=== PATIENT | male | born 1965 | race Caucasian/White ===

== ENCOUNTER → 2017-01-22 | Outpatient (CLI) | payer BC | END | disposition home or self-care (01) | LOC: C.LAB1850 15:24 | PROVIDERS: ATTEND Urology | DX: R97.20 Elevated prostate specific antigen [PSA] (principal) ==

== ENCOUNTER → 2017-01-22 | Outpatient (CLI) | payer BC ==
--- NOTE | 2017-01-22 14:22 | DIAGNOSTIC IMAGING REPORT ---
RIGHT ANKLE AND FOREFOOT MRI HISTORY: RT ANKLE PAIN Right TECHNIQUE: Multiplanar multisequence MRI of the right ankle and forefoot was performed without the use of intravenous contrast. COMPARISON STUDY: None. FINDINGS: There is thinning and increased signal within the mid to distal peroneal brevis tendon consistent with a tendinopathy. The flexor, extensor, and Achilles tendon are normal in course, caliber, and signal intensity. The plantar fascia is intact. No fracture or dislocation within the ankle or foot. The medial and lateral stabilizing ligaments of the ankle are intact. Minimal subcutaneous edema at the plantar aspect of the heel adjacent to the plantar fascia. Cartilage spaces are maintained. IMPRESSION: 1. Mild tendinopathy of the mid to distal peroneal brevis tendon. 2. No fractures identified within the ankle or forefoot. 3. Minimal subcutaneous edema along the plantar aspect of the heel abutting the plantar fascia. However, the plantar fascia is normal in caliber and signal intensity. Electronically signed by: Damián Buckley M.D. 01/22/2017 2:20 PM Dictated Date/Time: 01/22/2017 1:57 PM
== END | disposition home or self-care (01) ==
LOC: C.MRIBC 12:53
PROVIDERS: ATTEND Physical Medicine & Rehabilitation
DX: M79.661 Pain in right lower leg (principal); M79.671 Pain in right foot; M65.271 Calcific tendinitis, right ankle and foot

== ENCOUNTER 2021-01-18 19:03 | Inpatient (IN) ==
[2021-01-18] MEDS ORDERED: CEFEPIME 2,000 MG/20 ML VIAL IV STA (20:44)
[2021-01-18] MEDS ORDERED: ACETAMINOPHEN 500 MG TAB PO STA (21:02)
[2021-01-18 21:34] LABS: Hematocrit (blood only) 43.6 % (42-52); Hemoglobin 15.2 g/dL (14.0-18.0); Immature Granulocytes # (auto) 0.01 K/uL (0.00-0.02); Immature Granulocytes % (auto) 0.1 %; Lymphocytes # (auto) 0.12 K/uL (1.2-3.4); Lymphocytes % (auto) 1.4 %; Mean Corpuscular Hemoglobin 28.8 pg (25-34); Mean Corpuscular Hgb Conc 34.9 g/dL (32-36); Mean Corpuscular Volume 82.6 fL (80-100); Mean Platelet Volume 9.4 fL (7.4-10.4); Monocytes # (auto) 0.34 K/uL (0.11-0.59); Neutrophils # (auto) 8.08 K/uL (1.4-6.5); Neutrophils % (auto) 94.5 %; Platelet Count 123 K/uL (130-400); RDW Coefficient of Variation 13.5 % (11.5-14.5); RDW Standard Deviation 40.7 fL (36.4-46.3); Red Blood Count 5.28 M/uL (4.7-6.1); White Blood Count 8.55 K/uL (4.8-10.8)
--- NOTE | 2021-01-18 21:35 | Emergency Department Note ---
Impression & Plan Bacteremia due to Gram-negative bacteria, Fever, Hx of prostate biopsy ED Provider Note Provider: Minesh Santos MD DATE OF SERVICE: 01/18/2021 CHIEF COMPLAINT: Positive blood cultures HISTORY OF PRESENT ILLNESS: Patient is a 55-year-old gentleman history of enlarged prostate presenting after being called back due to positive blood cultures. Patient on Thursday 2 days ago had a prostate biopsy at the [facility]. States he is significantly large prostate. Noted yesterday some malaise as well as low-grade fevers and took a Cipro at home. Came in yesterday evening and seen very early last morning. Had blood cultures obtained which returned positive in 3/4 bottles for gram-negative bacilli this afternoon he was called back to return. Patient returns and states has had some low-grade intermittent fevers today particularly when the Cipro he is taking is wearing off at the end of the 12 hours. States he has been eating and drinking okay and denies significant urinary pain or hematuria. States chronic urinary frequency related to his enlarged prostate. States he was called by his urology group and told his prostate biopsies were negative for cancer. Patient states while he wants to feel better he was planning on going vacation but given his positive blood cultures he is agreeable to come here for evaluation and possible admission. REVIEW OF SYSTEMS: A total of 10 review of systems was obtained and negative except as stated above in the HPI. PAST MEDICAL HISTORY: As noted above MEDICATIONS: Reviewed home medication list FMH: No significant family history of prostate issues he reports. 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 NECK: Trachea midline. Supple. LUNGS: Airway patent. No retractions. Breath sounds clear anteriorly HEART: Regular rate and rhythm. No chest wall tenderness ABDOMEN: Soft and non-tender, without guarding or rebound. SKIN: Acyanotic, warm, dry, without rashes EXTREMITIES: Without swelling, tenderness or deformity NEUROLOGICAL: No focal deficits. No aphasia. No facial droop or slurred speech. Patient's laboratory studies and imaging reviewed. Differential includes Viral syndrome, otitis, pharyngitis, pneumonia, influenza, meningitis, urinary tract infection, sepsis, bacteremia, as well as other pathologies. IMPRESSION/MEDICAL DECISION MAKING: Patient presents called back after positive blood cultures from yesterday. Medical record reviewed. Prostate biopsy several days ago likely the inciting event. Likely bacteremia from this given the transrectal prostate biopsy on Thursday. Started taking Cipro yesterday several hours before the cultures were drawn as well as throughout the day today. Still having low-grade temperatures per his report and upon my evaluation the room he has an oral temperature of 100.7 Fahrenheit. Given some Tylenol here. Patient does not appear septic or hypotensive. Patient appears well perfused and denies significant discomfort at this point but endorses some intermittent malaise and fatigue. Discussed with him at length recommendations for IV antibiotics and repeat cultures. Discussed resistance patterns with ciprofloxacin. Discussed with him monitoring for clearance of cultures and improvement of symptoms. He was in agreement at this time for further care here at the hospital. Given empiric dose of cefepime for broad coverage given his recent procedure including gram-negative coverage. Hospitalist was contacted for further care DIAGNOSIS: Gram-negative bacteremia, history of prostate biopsy, fever DISPOSITION: Hospitalist will evaluate Patient was agreeable with this plan. Past Med/Surg History Social History Smoking Status: Never smoker Preferred Language: Portuguese Feels Safe at Home: Yes Allergies Allergies Allergy/AdvReac Type Severity Reaction Status Date / Time Penicillins Allergy Mild Rash Verified 01/18/21 20:51 Home Meds Home Medications Medication Instructions Recorded Confirmed simvastatin 20 mg tablet 20 mg PO HS 06/01/19 01/18/21 zolpidem 10 mg tablet 10 mg PO HS tab 06/01/19 01/18/21 alfuzosin [Uroxatral] 10 mg PO QAM 01/17/21 01/18/21 Results & Data (ED) Vital Signs Vital Signs - 24 hr 01/18/21 19:03 01/18/21 21:28 01/18/21 22:27 Temperature 37.4 C Temperature Source Temporal Artery Scan Pulse Rate 106 H Pulse Rate [Finger] 102 H 95 H Pulse Rhythm [Finger] Regular Regular Respiratory Rate 16 18 18 Respiratory Effort / Characteristics Non-Labored Spontaneous Non-Labored Spontaneous Respiratory Depth Normal Normal Respiratory Pattern Regular Regular Blood Pressure 125/76 Blood Pressure [Right Arm] 147/82 H 136/79 Blood Pressure Mean 92 Blood Pressure Mean [Right Arm] 103 98 Blood Pressure Position Sitting Blood Pressure Position [Right Arm] Sitting Sitting Pulse Oximetry 95 96 98 Oxygen Delivery Method Room Air Room Air Room Air Sepsis Recent Fever Within 48 Hours No Sepsis New/Unexplained Change in Mental Status No Sepsis Action Taken by Nursing No Action Required Laboratory Data Result diagrams: 01/18/21 20:21 01/18/21 20:21 Lab Results 01/18/21 01/18/21 01/18/21 Range/Units 20: 20: 20: WBC 8.55 (4.8-10.8) K/uL RBC 5.28 (4.7-6.1) M/uL Hgb 15.2 (14.0-18.0) g/dL Hct 43.6 (42-52) % MCV 82.6 (80-100) fL MCH 28.8 (25-34) pg MCHC 34.9 (32-36) g/dL RDW Std Deviation 40.7 (36.4-46.3) fL RDW Coeff of Satya 13.5 (11.5-14.5) % Plt Count 123 L (130-400) K/uL MPV 9.4 (7.4-10.4) fL Immature Gran % (Auto) 0.1 % Neut % (Auto) 94.5 % Lymph % (Auto) 1.4 % Rogers % (Auto) 4.0 % Eos % (Auto) 0.0 % Baso % (Auto) 0.0 % Neut # (Auto) 8.08 H (1.4-6.5) K/uL Lymph # (Auto) 0.12 L (1.2-3.4) K/uL Rogers # (Auto) 0.34 (0.11-0.59) K/uL Eos # (Auto) 0.00 (0-0.5) K/uL Baso # (Auto) 0.00 (0-0.2) K/uL Immature Gran # (Auto) 0.01 (0.00-0.02) K/uL Sodium 138 (136-145) mmol/L Potassium 3.4 L D (3.5-5.1) mmol/L Chloride 108 H (98-107) mmol/L Carbon Dioxide 23 (21-32) mmol/L Anion Gap 7.0 (3-11) BUN 14 (7-18) mg/dl Creatinine 1.02 (0.6-1.4) mg/dl Est Cr Clr Drug Dosing 90.9 ml/min Est GFR ( Amer) 96.1 ml/min Est GFR (Non-Af Amer) 82.9 ml/min BUN/Creatinine Ratio 13.9 (10-20) Glucose 127 H (70-99) mg/dl Lactate 1.1 (0.4-2.0) mmol/L Calcium 9.1 (8.5-10.1) mg/dl Magnesium 1.9 (1.8-2.4) mg/dl Total Bilirubin 3.8 H (0.2-1) mg/dl AST 35 (15-37) U/L ALT 33 (12-78) U/L Alkaline Phosphatase 63 (45-117) U/L Total Protein 6.6 (6.4-8.2) gm/dl Albumin 3.6 (3.4-5.0) gm/dl Globulin 3.0 (2.5-4.0) gm/dl Albumin/Globulin Ratio 1.2 (0.9-2) COVID-19 Eval Order SARS-CoV-2 (PCR) (Negative) 01/18/21 01/18/21 Range/Units 21:20 21:20 WBC (4.8-10.8) K/uL RBC (4.7-6.1) M/uL Hgb (14.0-18.0) g/dL Hct (42-52) % MCV (80-100) fL MCH (25-34) pg MCHC (32-36) g/dL RDW Std Deviation (36.4-46.3) fL RDW Coeff of Satya (11.5-14.5) % Plt Count (130-400) K/uL MPV (7.4-10.4) fL Immature Gran % (Auto) % Neut % (Auto) % Lymph % (Auto) % Rogers % (Auto) % Eos % (Auto) % Baso % (Auto) % Neut # (Auto) (1.4-6.5) K/uL Lymph # (Auto) (1.2-3.4) K/uL Rogers # (Auto) (0.11-0.59) K/uL Eos # (Auto) (0-0.5) K/uL Baso # (Auto) (0-0.2) K/uL Immature Gran # (Auto) (0.00-0.02) K/uL Sodium (136-145) mmol/L Potassium (3.5-5.1) mmol/L Chloride (98-107) mmol/L Carbon Dioxide (21-32) mmol/L Anion Gap (3-11) BUN (7-18) mg/dl Creatinine (0.6-1.4) mg/dl Est Cr Clr Drug Dosing ml/min Est GFR ( Amer) ml/min Est GFR (Non-Af Amer) ml/min BUN/Creatinine Ratio (10-20) Glucose (70-99) mg/dl Lactate (0.4-2.0) mmol/L Calcium (8.5-10.1) mg/dl Magnesium (1.8-2.4) mg/dl Total Bilirubin (0.2-1) mg/dl AST (15-37) U/L ALT (12-78) U/L Alkaline Phosphatase (45-117) U/L Total Protein (6.4-8.2) gm/dl Albumin (3.4-5.0) gm/dl Globulin (2.5-4.0) gm/dl Albumin/Globulin Ratio (0.9-2) COVID-19 Eval Order Covid19 at [facility] SARS-CoV-2 (PCR) NEGATIVE (Negative) Administered Medications Discontinued Medications Acetaminophen (Acetaminophen 500 Mg Tab) 1,000 mg PO NOW STA Stop: 01/18/21 21:03 Last Admin: 01/18/21 21:23 Dose: 1,000 mg Documented by: [id number] Cefepime HCl (Maxipime) 2,000 mg in 20 mls @ 5 mls/min IV NOW STA; Protocol Stop: 01/18/21 20:47 Last Admin: 01/18/21 21:22 Dose: 5 mls/min Documented by: [id number] Discharge Plan Visit Data Chief Complaint: Infection Stated Complaint: BLOOD INFECTION ED Provider: Minesh Santos Discharge Problem: Bacteremia due to Gram-negative bacteria, Fever, Hx of prostate biopsy Patient Disposition: Being Evaluated by Hospitalist Condition: Good Forms Stand Alone Forms: Stick and Play Prescriptions Prescriptions: No Action zolpidem [Ambien] 10 mg tablet 10 mg PO HS RF: 0 simvastatin 20 mg tablet 20 mg PO HS RF: 0 alfuzosin [Uroxatral] 10 mg tablet extended release 24 hr 10 mg PO QAM RF: 0 Referrals Referrals: PCP,NO [Primary Care Provider] - Discharge Problem: Fever Qualifiers: Fever type: due to other condition Qualified Code(s): R50.81 - Fever presenting with conditions classified elsewhere
[2021-01-18 21:55] LABS: Albumin Level 3.6 gm/dl (3.4-5.0); BUN Creatinine Ratio 13.9 (10-20); Calcium 9.1 mg/dl (8.5-10.1); Creatinine Clr Calc Pharmacy 90.9 ml/min; Est GFR (African American) 96.1 ml/min; Est GFR (Non-African American) 82.9 ml/min; Magnesium 1.9 mg/dl (1.8-2.4)
[2021-01-18 22:16] LABS: Albumin Globulin Ratio 1.2 (0.9-2); Bilirubin,Total 3.8 mg/dl (0.2-1); Total Protein 6.6 gm/dl (6.4-8.2)
[2021-01-18 22:27] LABS: Potassium 3.4 mmol/L (3.5-5.1)
--- NOTE | 2021-01-18 22:29 | History & Physical Report ---
Date of Service January 18, 2021 Assessment & Plan (1) Bacteremia due to Gram-negative bacteria: Patient is a 55 year old male with PMHx BPH, HLD, Sleep Disturbance, presenting with chief complaint of positive blood cultures growing gram negative bacilli. Bacteremia secondary to Gram Negative Bacilli -Suspect seeding secondary to recent prostate biopsy at [facility] on 01/16/21 -Blood cultures drawn on 01/17/21 growing 3/4 bottles with Gram Negative bacilli, though patient had been taking ciprofloxacin prior to cultures being drawn -Given a dose of Cefepime in the ED -Will start patient on Zosyn for coverage of anaerobes and hospital acquired in addition to gram negatives until cultures result and sensitivities shown -Suspect that these will result early tomorrow and patient can be transitioned to oral antibiotics Hyperbilirubinemia -Bilirubin total at 3.8 on admission -Liver enzymes within normal levels, no obvious signs of wilsons or hemolytic anemia -Suspect secondary to Gilbert Syndrome -CBC in AM, repeat bilirubin with direct BPH -Continue Alfuzosin HLD -Continue Simvastatin Sleep Disturbance -Hold ambient while inpatient -Will add melatonin PRN qhs Dispo: Med/Surg for IV antibiotics FEN: HH diet DVT: SCDs Code: Full History of Present Illness Chief Complaint: Bacteremia Primary Care Provider: NO PCP Patient is a 55 year old male with PMHx BPH, HLD, Sleep Disturbance, presenting with chief complaint of positive blood cultures growing gram negative bacilli. Patient notes that he underwent a prostate biopsy on 01/16/21 at [facility]. He notes that his biopsies were negative for cancer. He notes that he has had 1 day of ongoing fever and malaise for which he was taking leftover ciprofloxacin from a cystoscopy he had 1 month prior. He was seen at [facility] ED on 01/17/21 at which time blood cultures were drawn. Patient was discharged then per request as he was feeling better. This afternoon patient was called to return for evaluation as 3/4 of the bottles were growing gram negative bacilli. He notes that he currently feels well and has not had any further feelings of fever, malaise. Denies NVD, SOB, chest pain, abdominal pain, dysuria, hematuria. MED Hx: BPH, HLD, Sleep disturbance Surg Hx: L shoulder pin Soc Hx: No tobacco or illicit drug use. Alcoholic beverage 1x/month Allergies Allergy/AdvReac Type Severity Reaction Status Date / Time Penicillins Allergy Mild Rash Verified 01/18/21 20:51 Home Medications Medication Instructions Recorded Confirmed Type simvastatin 20 mg tablet 20 mg PO HS 06/01/19 01/18/21 History zolpidem 10 mg tablet 10 mg PO HS tab 06/01/19 01/18/21 History alfuzosin [Uroxatral] 10 mg PO QAM 01/17/21 01/18/21 History Past Med/Surg History Social History Smoking Status: Never smoker Hx Alcohol Use: Yes Alcohol type: beer and wine Hx Substance Use: No Preferred Language: Guinean Communication Ability: Effective Tie Up Worker Required: No Beliefs That Will Affect Care: None Current Living Situation: Family Other Information That Helps Us Care for You: No Feels Safe at Home: Yes Safety Concerns: Feels Safe At This Time Assistive Devices: Glasses Review of Systems Review of Systems: All systems reviewed & are unremarkable except as noted in Subjective Physical Exam Constitutional: WD/WN, vitals as above Eyes: PERRL, conjunctivae normal, anicteric sclerae ENMT: external ear and nose normal, oropharynx normal Neck: trachea midline, no thyromegaly Respiratory: normal respiratory effort, lungs clear to auscultation Cardiovascular: RRR, no murmur, no edema Gastrointestinal (Abdomen): normal bowel sounds, soft, nontender, no hepatosplenomegaly Musculoskeletal: no cyanosis or clubbing, extremities motor strength 5/5 Skin: no rashes, warm and dry Neurologic: PERRL, EOMI, accommodation nl, no face palsy, no dysarthria Psychiatric: A+Ox3, euthymic affect Results & Data Results & Data ([place]) Vital Signs (Past 12 Hours) Vital Signs Temp Pulse Pulse Resp BP BP Pulse Ox 01/18/21 22:27 95 H 18 136/79 98 01/18/21 21:28 102 H 18 147/82 H 96 01/18/21 19:03 37.4 C 106 H 16 125/76 95 Supervising Physician Co-Signing Physician Notes Attending addendum: I have physically seen this patient, have supervised the medical residents activities, and agree with the H&P unless as otherwise noted. Assessment and Plan: Bacteremia due to gram-negative bacilli- Status post recent prostate biopsy at [facility] on 01/16/2021 patient had had previous blood cultures drawn on 01/17/2021, and were found to be growing 3/4 bottles of gram-negative bacilli, despite the patient being on ciprofloxacin. Patient was given cefepime 2 g by the ED this evening. Placed on Zosyn 4.5 g IV every 8 hours Follow sensitivities of blood cultures Hyperbilirubinemia- Likely Gilbert's syndrome. BPH- Continue alfuzosin Hyperlipidemia- Continue simvastatin Remaining orders and notations as noted Resident Activity Tracking Resident Involvement: Resident Care Provided Care Provided: Adult [facility] Medicine
[2021-01-18] MEDS ORDERED: POTASSIUM CHLORIDE CRTAB 20 MEQ TABCR PO STA (22:43)
[2021-01-18 22:50] LABS: Appearance Urine Clear (Clear); Bacteria Urine Automated Negative (Negative); Blood Urine 1+ (Negative); Color Urine Dark Yellow; Epithelial Cell Urine Auto >30 /lpf (0-5); Glucose Urine UA Negative (Negative); Ketones Urine 3+ (Negative); Leukocyte Esterase Urine Negative (Negative); Nitrite Urine Negative (Negative); Protein Urine 1+ (Negative); Specific Gravity Urine 1.042 (1.000-1.030); Urobilinogen Urine Negative (Negative); pH Urine 5.5 (4.5-7.5)
[2021-01-18 22:52] LABS: Bilirubin Urine 1+ (Negative)
[2021-01-18 23:16] LABS: Mucus Urine Present (None Prsent)
[2021-01-18] MEDS ORDERED: PIPERACILL/TAZOBAC CONSULT ACTIVE PRN (23:37)
[2021-01-18] MEDS ORDERED: MELATONIN 3 MG TAB PO PRN (23:37)
[2021-01-18] MEDS ORDERED: PIPERACILLIN/TAZOBACTAM 4.5 GM in DEXTROSE 5% 100 ML IV SCH (23:37)
[2021-01-18] MEDS ORDERED: ONDANSETRON INJ 2 MG/ML 2 ML VIAL IV PRN (23:37)
[2021-01-19] MEDS ORDERED: PIPERACILLIN/TAZOBACTAM 4.5 GM in DEXTROSE 5% 100 ML IV ONE
[2021-01-19 06:23] LABS: Hematocrit (blood only) 41.5 % (42-52); Hemoglobin 14.2 g/dL (14.0-18.0); Immature Granulocytes # (auto) 0.01 K/uL (0.00-0.02); Immature Granulocytes % (auto) 0.2 %; Lymphocytes # (auto) 0.24 K/uL (1.2-3.4); Lymphocytes % (auto) 3.9 %; Mean Corpuscular Hemoglobin 28.2 pg (25-34); Mean Corpuscular Hgb Conc 34.2 g/dL (32-36); Mean Corpuscular Volume 82.5 fL (80-100); Monocytes # (auto) 0.29 K/uL (0.11-0.59); Monocytes % (auto) 4.7 %; Neutrophils # (auto) 5.57 K/uL (1.4-6.5); Neutrophils % (auto) 91.2 %; Platelet Count 107 K/uL (130-400); RDW Coefficient of Variation 13.5 % (11.5-14.5); RDW Standard Deviation 40.7 fL (36.4-46.3); Red Blood Count 5.03 M/uL (4.7-6.1); White Blood Count 6.11 K/uL (4.8-10.8)
[2021-01-19 06:54] LABS: Albumin Level 3.1 gm/dl (3.4-5.0); BUN Creatinine Ratio 12.2 (10-20); Bilirubin Direct 0.3 mg/dl (0-0.2); Calcium 8.9 mg/dl (8.5-10.1); Creatinine Clr Calc Pharmacy 97.6 ml/min; Est GFR (African American) 104.8 ml/min; Est GFR (Non-African American) 90.4 ml/min; Potassium 3.6 mmol/L (3.5-5.1)
[2021-01-19 06:57] LABS: Albumin Globulin Ratio 1.1 (0.9-2); Bilirubin,Total 3.3 mg/dl (0.2-1); Globulin 2.8 gm/dl (2.5-4.0); Total Protein 5.9 gm/dl (6.4-8.2)
[2021-01-19] MEDS: ACETAMINOPHEN 325 MG TAB PO PRN ×2 (08:09→22:48)
[2021-01-19] MEDS: PIPERACILLIN/TAZOBACTAM 3.375 GM in DEXTROSE 5% 100 ML IV SCH ×3 (08:09→22:47)
[2021-01-19] MEDS: ALFUZOSIN HCL 10 MG TAB PO SCH (09:35)
[2021-01-19 09:48] LABS: Fibrinogen 488 mg/dl (184-400); INR 1.2 (0.9-1.1); Partial Thromboplastin Ratio 1.2; Prothrombin Time 11.9 Seconds (9.0-12.0)
--- NOTE | 2021-01-19 10:17 | Hospitalist Progress Note ---
Date of Service January 19, 2021 Assessment & Plan (1) Bacteremia due to Gram-negative bacteria: Patient is a 55 year old male with PMHx BPH, HLD, Sleep Disturbance, presenting with chief complaint of positive blood cultures growing gram negative bacilli. Bacteremia secondary to Gram Negative Bacilli -Suspect seeding secondary to recent prostate biopsy at [facility] on 01/16/21 -Blood cultures drawn on 01/17/21 growing 2/2 bottles with Gram Negative bacilli -Given a dose of Cefepime in the ED -Continue on Zosyn for coverage of anaerobes and hospital acquired in addition to gram negatives until cultures result and sensitivities shown Hyperbilirubinemia -Bilirubin total at 3.8 on admission -Liver enzymes within normal levels, no obvious signs of [place] or hemolytic anemia -Suspect secondary to Gilbert Syndrome -CBC in AM, repeat bilirubin with direct Splenic Lesion on CT - Rim-enhancing 24 mm splenic lesion - Appearance is nonspecific, but given the rim enhancement and history of fever, a splenic abscess cannot be excluded - Continue to monitor as patient asymptomatic from abdominal standpoint - Consider repeat imaging--lesion could be anatomic variation of limited significance or could improve with abx making abscess more likely BPH -Continue Alfuzosin HLD -Continue Simvastatin Sleep Disturbance -Hold Ambien while inpatient -Will add melatonin PRN qhs Dispo: Med/Surg for IV antibiotics FEN: HH diet DVT: SCDs Code: Full Admission and Anticipated Discharge Date Admission Date: January 18, 2021 Supervising Physician Co-Signing Physician Notes Feels absolutely fine, very much would like to go home as soon as possible. No abdominal pain. No no prostate type symptoms acutely. Vitals noted, in general he is awake and alert pleasant no distress. HEENT normocephalic atraumatic mucous membranes moist. Abdomen is soft nondistended nontender to even deep palpation in the left upper quadrant, no guarding no rebound no rigidity. Neuro shows no focal deficits. Skin shows no rashes, no overt petechiae. Sepsisfrom gram-negative bacteremiaalmost certainly related to prostate biopsy. Continue Zosyn pending full speciation. A little bit concerning that he may have been working towards DIC/HUS given his platelets, INR, and bilirubinalthough he does note that with his [place] syndrome his bilirubin may run between 2-4 normally. Follow labs closely. Question of splenic lesionit is quite concerning in the context of bacteremia, and at the same time he has no symptoms consistent with a splenic lesion. I cannot feel his spleen, he has no tenderness to deep palpation, and clinically he looks fine. At the same time, this could also potentially in a way account for his thrombocytopenia, and may be real. We will definitely be treating with IV antibiotics with transition to p.o. once we have susceptibilities. Will check ultrasound tomorrowif the lesion is visible on ultrasound, could potentially tract resolution. Review of the literature does seem to favor drainage, or even splenectomy if needed, but I would hate to subject him to interventions for an asymptomatic lesion that may even be a chronic finding. This would likely require a lot of follow-up to check for rate of change. Certainly if it worsens or he starts to develop abdominal pain then it would be very clear that he would need transfer to tertiary for IR/tertiary surgery, otherwise may follow closely while he is on antibiotics, and if no intervention is done then closely after as well. If not visible on ultrasound, may need to do serial CTs. Subjective Patient seen at bedside chair this morning. He does not complain of any fever, chills, abdominal pain, or any other symptoms. Discussed blood cultures and awaiting antibiotic sensitivities for deciding on PO regimen before DC. Review of Systems Review of Systems: All systems reviewed & are unremarkable except as noted in Subjective Physical Exam Constitutional: WD/WN, vitals as above Eyes: PERRL, conjunctivae normal, anicteric sclerae Respiratory: normal respiratory effort, lungs clear to auscultation Cardiovascular: RRR, no murmur, no edema Gastrointestinal (Abdomen): normal bowel sounds, soft, nontender, no hepatosplenomegaly Skin: no rashes, warm and dry Psychiatric: A+Ox3, euthymic affect Results & Data Results & Data ([facility]) Vital Signs (Past 12 Hours) Vital Signs Temp Pulse Resp BP BP Pulse Ox 01/19/21 09:34 37.5 C 01/19/21 07:35 38.8 C H 99 H 16 124/64 94 01/18/21 23:39 37.1 C 100 H 16 114/82 92 01/18/21 23:18 102 H 18 116/77 98 01/18/21 22:27 95 H 18 136/79 98 Resident Activity Tracking Resident Involvement: Resident Care Provided Care Provided: Adult [facility] Medicine
--- NOTE | 2021-01-19 16:16 | Billing Data ---
Date of Service January 19, 2021 Coding Level of Care Code 92861 Subseq Hosp Care Lvl 3
[2021-01-19] MEDS ORDERED: SIMVASTATIN 20 MG TAB PO SCH (21:00)
--- NOTE | 2021-01-20 01:48 | Billing Data ---
Date of Service January 20, 2021 Coding Level of Care Code 88357 Initial Inpt Care Lvl 3
[2021-01-20 06:23] LABS: Eosinophils # (auto) 0.03 K/uL (0-0.5); Eosinophils % (auto) 0.6 %; Hemoglobin 14.3 g/dL (14.0-18.0); Immature Granulocytes # (auto) 0.01 K/uL (0.00-0.02); Immature Granulocytes % (auto) 0.2 %; Lymphocytes % (auto) 8.7 %; Mean Corpuscular Hemoglobin 28.8 pg (25-34); Mean Corpuscular Hgb Conc 34.9 g/dL (32-36); Mean Corpuscular Volume 82.7 fL (80-100); Mean Platelet Volume 9.4 fL (7.4-10.4); Monocytes # (auto) 0.43 K/uL (0.11-0.59); Monocytes % (auto) 9.3 %; Neutrophils # (auto) 3.75 K/uL (1.4-6.5); Neutrophils % (auto) 81.2 %; Platelet Count 103 K/uL (130-400); RDW Coefficient of Variation 13.6 % (11.5-14.5); RDW Standard Deviation 41.1 fL (36.4-46.3); Red Blood Count 4.96 M/uL (4.7-6.1); White Blood Count 4.62 K/uL (4.8-10.8)
[2021-01-20 06:50] LABS: RBC Morphology Unremarkable
[2021-01-20 06:54] LABS: BUN Creatinine Ratio 11.7 (10-20); Creatinine Clr Calc Pharmacy 91.8 ml/min; Est GFR (African American) 97.3 ml/min; Est GFR (Non-African American) 83.9 ml/min; Potassium 3.9 mmol/L (3.5-5.1)
[2021-01-20 06:58] LABS: Albumin Globulin Ratio 0.9 (0.9-2); Bilirubin,Total 2.1 mg/dl (0.2-1); Globulin 3.2 gm/dl (2.5-4.0); Total Protein 6.2 gm/dl (6.4-8.2)
[2021-01-20] MEDS: ALFUZOSIN HCL 10 MG TAB PO SCH (08:09)
[2021-01-20] MEDS: PIPERACILLIN/TAZOBACTAM 3.375 GM in DEXTROSE 5% 100 ML IV SCH (08:09)
--- NOTE | 2021-01-20 09:24 | Ultrasound Report ---
ULTRASOUND OF THE SPLEEN CLINICAL HISTORY: Follow-up splenic lesion. COMPARISON STUDY: Abdominal CT dated 01/18/2021. FINDINGS: Real-time grayscale and color flow sonography of the spleen is performed. The spleen is enl arged, measuring 16.3 cm in length. There is a heterogeneous solid lesion in the spleen which is tiffani pherally hypoechoic and heterogeneously hyperechoic centrally. This shows internal flow on color imag ing and measures up to 2.7 cm. No additional splenic lesion is identified. There is no perisplenic fl uid. A 2.8 cm cyst is incidentally noted in the upper pole of the left kidney. IMPRESSION: 1. Splenomegaly. 2. There is a 2.7 cm splenic soft tissue lesion as above. This is pathologically indeterminant, and s tatistically likely represents a hemangioma or hamartoma. The appearance is not typical for abscess. Neoplasm would be impossible to exclude. A 3 month follow-up contrast-enhanced CT or repeat ultrasoun d is recommended for reassessment. Electronically signed by: Kishore Cha M.D. 01/20/2021 9:23 AM
--- NOTE | 2021-01-20 15:59 | Discharge Summary ---
Date of Service January 20, 2021 Admission HPI Per Admitting Provider Patient is a 55 year old male with PMHx BPH, HLD, Sleep Disturbance, presenting with chief complaint of positive blood cultures growing gram negative bacilli. Patient notes that he underwent a prostate biopsy on 01/16/[address] [facility]. He notes that his biopsies were negative for cancer. He notes that he has had 1 day of ongoing fever and malaise for which he was taking leftover ciprofloxacin from a cystoscopy he had 1 month prior. He was seen at [facility] ED on 01/17/21 at which time blood cultures were drawn. Patient was discharged then per request as he was feeling better. This afternoon patient was called to return for evaluation as 3/4 of the bottles were growing gram negative bacilli. He notes that he currently feels well and has not had any further feelings of fever, malaise. Denies NVD, SOB, chest pain, abdominal pain, dysuria, hematuria. MED Hx: BPH, HLD, Sleep disturbance Surg Hx: L shoulder pin Soc Hx: No tobacco or illicit drug use. Alcoholic beverage 1x/month Principal Diagnosis gram negative bacteremia Discharge Data Allergies Allergy/AdvReac Type Severity Reaction Status Date / Time Penicillins Allergy Mild Rash Verified 01/18/21 20:51 Consultations 01/18/21 21:05 ED Decision to Admit Stat Ordered Studies 01/20/21 07:00 US abdomen limited Routine Hospital Course (1) Bacteremia due to Gram-negative bacteria: Bacteremia Patient's gram-negative bacilli bacteremia was suspected to be secondary to the prostate biopsy he underwent at [facility] on 01/16/21. Patient was treated with IV zosyn until culture sensitivities resulted, at which point patient was transitioned to oral augmentin. Patient remained asymptomatic and h emodynamically stable for the entirety of his hospitalization. Patient was discharged on hospital day three with a total 14-day course of augmentin. Close PCP follow-up was recommended. Hyperbilirubinemia Patient's bilirubin was elevated to 3.8 on admission without elevated transaminases, signs of hemolytic disease, or signs of Roverto's disease. 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 Patient's bilirubin decreased to 2.1 at the time of discharge. PCP follow-up was recommended. Splenic lesion on CT Patient was noted on imaging with a rim-enhancing 24mm splenic lesion, which was deemed non-specific, but a splenic abscess could not be excluded based on patient's history of fever and bacteremia. Patient was asymptomatic during this hospitalization, and splenic lesion was felt unlikely to be an abscess. However, patient was discharged with instructions to discuss this finding with his PCP to discuss potential repeat imaging on an outpatient basis. BPH Patient's home regimen was continued during this hospitalization. HLD Patient's home regimen was continued during this hospitalization. Total Time Total Time Spent Total Time Spent (In Minutes): >30 Discharge Plan Discharge Items Patient Disposition: Home - Self-Care Reason For Visit: GRAM NEG BACEREMIA Discharge Diagnosis: E Coli bloodstream infection, splenic lesion (see below) Condition on Discharge: Good Activity: Resume your previous activity Non-emergency contact: Primary Care Provider Call non-emergency contact if: you have any medication questions, your symptoms worsen and you have a fever Follow-up/Referrals: PCP,NO [Primary Care Provider] - Diet: Regular Addtl Attending Provider Instructions: bloodstream infection -as unfortunately happens reasonably often, it appears that the prostate biopsy led to a bloodstream infection. fortunately you're getting better really quickly and it appears safe to get you home -the bacteria was E Coli (as expected, since that is one of the most common fecal bacteria) - it is resistant to several antibiotics, but fortunately was sensitive to the zosyn (piperacillin tazobactam) that you were initially on, and also is susceptible to augmentin (amoxicillin/clavulanate) -to that end, we'll treat with augment 875mg twice a day for 14 days (next dose tonight) and have you follow up -with the "spleen shenanigans" notwithstanding (see below) - these are problems that usually make people fairly sick at first (fevers/chills/malaise) - but once you start to get better it's really rare that people worsen again -while it was most likely just bacteria pushed into your bloodstream from the biopsy, every now and then someone can get a prostate infection as well - this mostly just would warrant longer treatment. while you have no symptoms of this right now, if you were to develop rectal pressure/a feeling of rectal fullness that doesn't change with a bowel movement, or pain/burning when you pee/or new/sudden worsening of your "BPH symptoms" those all could be signs of a prostate infection. again unlikely, but if this were to happen we'd want you to let Dr Baca know so that he could extend the course of antibiotics splenic "lesion" -on CT, the radiologist saw about a 24mm (about an inch) round area that was concerning for an abscess. This would be odd, rare, but also possible given the active bloodstream infection at the time this was imaged. fortunately, without any abdominal pain and with a completely reassuring exam, it seemed unlikely that you actually had an abscess in your spleen. further adding to the reassurance was the ultrasound - which allowed the radiologist to see the area in question differently -- and allowed them to conclude that it appears much more likely to be a congenital finding like a hemangioma -because an actual splenic infection would have the potential to be pretty dangerous, and not get better without drainage or even surgery, we'll want to follow this through thoroughly; however, to keep you safe from potentially unnecessary procedures for a problem that likely is not an actual problem, we'll take the following steps: ---->treat the bloodstream infection as above with 14 days of augmentin ---->if you were to find any new left upper abdominal pain, take it very seriously and get checked out ---->pay particular attention to any new left upper abdominal pain or a recurrence of fevers the week after you're off the antibiotics, and anything that could develop is not likely to do so while you're under treatment ---->we'll ask Dr Baca to get a repeat ultrasound of your spleen in about 10 days to follow the area --> if it's not changing at all, and continues to look like a congenital finding on serial ultrasounds, it is almost certainly that. if it were to change/congeal into a more clear abscess, etc - then it could show itself to be a potentially real infection -- but if we see that while you're still on the antibiotics, then we can have it taken care of without a break in treatment ---->again, clinically, with how good you look/feel/examine, i strongly suspect this has been there your whole life, we'll just want to follow it through tarun rosen to be on the safe side to do: -get augmentin, start taking it tonight, take it twice a day for 14 days -follow up with Dr Baca in a week; he'll check repeat labwork then (CBC, CMP) ([phone]) -have Dr Baca schedule a follow up ultrasound about 10-12 days from now -get seen right away if you notice new abdominal pain - particularly left upper abdominal pain - or you have recurrent fevers since you're travelling - if you were to find yourself in an ER, bring this with you: --E Coli bacteremia shortly after prostate biopsy - initially with mild septic appearance but quickly stabilized on zosyn, hospital day 2, sensitivities showed MDR E Coli - resistant to ampicillin and quinolones, intermediate to unasyn and cefazolin, otherwise sensitive. clinically looked well and examined totally benign (including no pain/tenderness to even deep palpation LUQ, no palpable splenomegaly). incidental finding on CT of 24mm rim enhancing lesion concerning for abscess. given incongruous clinical picture - ?congenital finding --> checked US which looked more consistent with hemangioma or hamartoma than abscess. plan -- abx x14 days, re-examine and repeat labs/US around day 10-12. other questions about care here - please call [facility] [phone] and ask for senior resident on the [employer] residency rounding service as they would be able to provide more clarity of details Pending Studies at Discharge: No Stand-Alone Forms: My [facility], Smoking Cessation Medications and DC Order Prescriptions: New amoxicillin-pot clavulanate [Augmentin] 875-125 mg tablet 1 tab PO BID Qty: 28 RF: 0 Continued zolpidem [Ambien] 10 mg tablet 10 mg PO HS RF: 0 simvastatin 20 mg tablet 20 mg PO HS RF: 0 alfuzosin [Uroxatral] 10 mg tablet extended release 24 hr 10 mg PO QAM RF: 0 Discharge Orders: Discharge Order (Routine); Ordered 01/20/21 Ordered By: Evangelista Cunningham Admission Data Admit Date/Time: 01/18/21 22:43 Attending Provider: Evangelista Cunningham Admit Provider: Sumeet Luna Primary Care Provider: PCP,NO Other Providers: Owen Stevenson Other Interventions: Discharge Summary Assessment (RN) Last Done: 01/20/21 11:22 Supervising Physician Co-Signing Physician Notes I personally examined the patient and verified all canela points of history and exam, discussed case, and agree with decision making with Dr Zheng Feels good, no abdominal pain. No fevers. Really wants to go home. Extensive discussion. Vitals noted, in general he is awake and alert pleasant no distress. HEENT normocephalic atraumatic mucous membranes moist. Abdomen is soft nondistended nontender to even deep palpation in the left upper quadrant, no guarding no rebound no rigidity. Neuro shows no focal deficits. Skin shows no rashes, no overt petechiae. Sepsisfrom gram-negative bacteremiaalmost certainly related to prostate biopsy. E. colisensitive to Augmentin (was sensitive to Zosyn)switch to Augmentin to finish 2 weeks of treatment Question of splenic lesionit is quite concerning in the context of bacteremia, and at the same time he has no symptoms consistent with a splenic lesion. I cannot feel his spleen, he has no tenderness to deep palpation, and clinically he looks fine. Fortunately, ultrasound seems more consistent with hemangioma or hamartomabut discussed with patient the need to have this followed through with, on the small but still possible chance that it could be infectious. We discussed the situation, he has a good understanding of my concerns, and also a good understanding that it is fairly unlikely that this is anything infectious, and more likely something that has been there his whole life. We will treat with 2 weeks of antibiotics, if, at any point, he has recurrence of fevers or new left abdominal pain, he will seek care immediately. Otherwise, we will repeat ultrasound in about 10 days to look for any rate of change/stability in the lesion, follow-up lab work in the office, and close vigilance once he is off of antibiotics as well. Stable for home, otherwise as above. Resident Activity Tracking Resident Involvement: Resident Care Provided Care Provided: Adult Hospital Medicine
--- NOTE | 2021-01-20 16:05 | Billing Data ---
Date of Service January 20, 2021 Coding Level of Care Code D/C Day Management >30 mins
== END 2021-01-20 13:07 | disposition home or self-care (01) | DRG 863 ==
LOC: ED 19:03 → SUATTDRO 22:43 → 3W 22:43
DX: Y92.009 Unspecified place in unspecified non-institutional (private) residence as the place of occurrence of the external cause; N40.0 Benign prostatic hyperplasia without lower urinary tract symptoms; G47.9 Sleep disorder, unspecified; Y83.8 Other surgical procedures as the cause of abnormal reaction of the patient, or of later complication, without mention of misadventure at the time of the procedure; T81.49XA Infection following a procedure, other surgical site, initial encounter; R78.81 Bacteremia; E78.5 Hyperlipidemia, unspecified; E80.6 Other disorders of bilirubin metabolism; B96.20 Unspecified Escherichia coli [E. coli] as the cause of diseases classified elsewhere